=== PATIENT | male | born 1995 | race Caucasian/White ===

== ENCOUNTER 2020-12-22 13:11 | Emergency (ER) | payer SELFPAY ==
[2020-12-22 13:12] VITALS: BP 138/86; PULSE 138; RESP 18; TEMP 37.3; O2SAT 96; BMI 22.4
--- NOTE | 2020-12-22 13:23 | EDS_ITS ---
HPI History of Present Illness Chief Complaint: Edema Informant: patient Onset/Context/Timing Onset: Today Context: Gradual Onset Timing: Continuous Current Severity: Mild Maximum Severity: Mild Narrative Narrative: The patient is an otherwise healthy 25-year-old male who does not see a dentist that presents to the emergency department with left lower gumline swelling. He states he woke this morning and noticed over some swelling. He denies any pain. He denies fevers or chills. He states he is not seen a dentis t in years. He denies trouble speaking or swallowing. He is otherwise been in his normal state of health. PFSH PFSH no medical history Home Medications penicillin V potassium 500 mg PO 4X/DAY #40 tab 12/22/20 [Rx Last Taken Unknown] Allergy/AdvReac Type Severity Reaction Status Date / Time No Known Allergies Allergy Verified 11/30/15 22:46 no significant family history no surgical history Social History Smoking Status: Current every day smoker ROS ROS ED Constitutional Constitutional ED: Denies chills or fever(s) Eyes Eyes: Denies blurry vision or change in vision ENT ENT ED: Denies ear pain or sore throat Cardiovascular Cardiovascular: Denies chest pain or palpitations Respiratory/Chest Respiratory/Chest: Denies cough, dyspnea or dyspnea on exertion Gastrointestinal Gastrointestinal: Denies abdominal pain, nausea or vomiting Genitourinary Genitourinary ED: Denies dysuria or urinary frequency Musculoskeletal Musculoskeletal: Denies arthralgias or myalgias Integumentary Denies rash Neurologic Neurologic: Denies headache(s) or paresthesias Psychiatric Psychiatric: Denies anxiety or depression Endocrine Endocrinology: Denies polydipsia or polyuria Allergic/Immunologic Allergic/Immunologic ED: Denies urticaria EXAM Physical Exam Const Vital Signs: 12/22/20 13:12 Temperature 99.2 F H Temperature Source Temporal Pulse Rate 138 H Respiratory Rate 18 Blood Pressure 138/86 H Blood Pressure Mean 103 Pulse Ox 96 Oxygen Delivery Method Room Air Positive well nourished and well developed General Appearance ED: well developed HEENT Reports normocephalic, head/scalp atraumatic and moist mucous membranes HEENT Narrative: Patient does have widespread dental disease. There is significant cavity of tooth 19 and 20 with erythema of the gumline. There is some mild swelling of the lower face, but no definitive abscess. The submental space is soft. There is no trismus or stridor. Eyes PERRL and EOMs intact bilaterally Neck no lymphadenopathy and supple General: Negative for tenderness Chest Wall inspection of chest normal Resp normal respiratory effort and clear to auscultation bilaterally Cardio regular rate, regular rhythm and no murmurs GI normal to inspection, nondistended, normoactive bowel sounds Palpation: Negative for tender, guarding or rebound tenderness present Back/Spine no CVA tenderness Cervical Spine: Negative for cervical spine tenderness Thoracic Spine / Upper Back: Negative for thoracic spinal tenderness Extremity normal to inspection General Extremety ED: Negative for tenderness Neuro oriented x3 and CN's II-XII intact bilaterally Neuro Narrative: No focal deficits appreciated. Sensorium / Orientation: alert Psych mental status grossly normal Skin no rashes or lesions noted, no wounds and skin turgor normal MDM MDM MDM Narrative Medical decision making narrative: Patient presents with facial edema secondary to dental infection. There is no Abhi angina. He has no trismus or stridor. There is no painful lymphadenopathy. The patient will be treated with penicillin and given outpatient dental resources. He was counseled on concerning symptoms and reasons to return. Impression 1. Dental abscess Discharge Plan Triage Chief Complaint: Edema ED Provider: Justin Trimble Dx/Rx/DC Orders Instructions: Dental Abscess Prescriptions: New penicillin V potassium 500 MG tablet 500 mg PO 4X/DAY Qty: 40 RF: 0
[2020-12-22 13:31] VITALS: BP 138/86; PULSE 138; RESP 18; TEMP 37.3; O2SAT 96
[2020-12-22 13:40] VITALS: RESP 18
== END 2020-12-22 13:40 | disposition home or self-care (01) ==
PROVIDERS: Emergency Provider Emergency Medicine
DX: K04.7 Periapical abscess without sinus (principal); F17.200 Nicotine dependence, unspecified, uncomplicated
CPT/HCPCS: 99282